=== PATIENT | female | born 1965 | race Caucasian/White ===

== ENCOUNTER → 2017-03-25 | Outpatient (CLI) | payer BC | LOC: MC.RAD 15:12 | DX: Z12.31 Encounter for screening mammogram for malignant neoplasm of breast (principal) ==

== ENCOUNTER 2017-10-02 14:58 | Emergency (ER) | payer BC ==
[~2017-10-02] VITALS: Ht 170.2 cm; Wt 77.3 kg
[2017-10-02 15:00] VITALS: BP 113/82; TEMP 97.7
[2017-10-02] MEDS ORDERED: EFFEXOR XR37.5 MG/CA PO (15:17)
[2017-10-02] MEDS ORDERED: [UNRECOGNIZED DRUG - CODE] PO (15:18)
[2017-10-02] MEDS ORDERED: MELATONIN5 M1 SL (15:21)
[2017-10-02] MEDS ORDERED: MOTRIN 800800 MG/TAB PO (15:22)
[2017-10-02] MEDS ORDERED: NORCO 325 MG-51 TAB PO (16:34)
[2017-10-02] MEDS ORDERED: ZOFRAN ODT4 MG PO (16:34)
[2017-10-02 16:50] VITALS: PULSE 75
== END 2017-10-02 16:50 | disposition home or self-care (01) ==
LOC: COL.ER 14:58
DX: S42.201A Unspecified fracture of upper end of right humerus, initial encounter for closed fracture (principal); G43.909 Migraine, unspecified, not intractable, without status migrainosus; W01.0XXA Fall on same level from slipping, tripping and stumbling without subsequent striking against object, initial encounter; Y92.008 Other place in unspecified non-institutional (private) residence as the place of occurrence of the external cause
CPT/HCPCS: J3010

== ENCOUNTER 2018-10-03 12:52 | Outpatient (RCR) | payer OTHER ==
[~2018-10-03 12:52] MED LIST: EFFEXOR XR37.5 MG/CA PO; MELATONIN5 M1 SL; MOTRIN 800800 MG/TAB PO; NORCO 325 MG-51 TAB PO; ZOFRAN ODT4 MG PO; [UNRECOGNIZED DRUG - CODE] PO
== END 2019-01-01 | disposition home or self-care (01) ==
LOC: WSOH
DX: S90.32XA Contusion of left foot, initial encounter (principal); W23.0XXA Caught, crushed, jammed, or pinched between moving objects, initial encounter; Y92.240 Courthouse as the place of occurrence of the external cause; Y99.0 Civilian activity done for income or pay; Z79.899 Other long term (current) drug therapy

== ENCOUNTER → 2019-07-10 | Outpatient (CLI) | payer BC | LOC: MC.RAD 06-04 14:00 | DX: Z12.31 Encounter for screening mammogram for malignant neoplasm of breast (principal) ==

== ENCOUNTER → 2020-01-08 | Outpatient (CLI) | payer BC ==
--- NOTE | 2020-01-04 14:55 | NUR ---
LMOM REGARDING TIME DATE ISTRUCTIONS AND CALL BACK NUMBER.
[~2020-01-08] VITALS: Ht 170.2 cm; Wt 95.1 kg
[~2020-01-08] MED LIST changes: +ASPIRIN E.C. 8181 MG PO; +CLARITIN 1010 MG/TAB PO; +MEDROL4 MG PO; +MULTIPLE VITAMI1 CAP PO; +PRILOSEC 20MG20 MG PO; +TYLENOL 500MG500 MG PO
[2020-01-08 09:45] VITALS: BP 137/101; PULSE 88
[2020-01-08 10:50] VITALS: BP 140/89; PULSE 74
[2020-01-08 10:52] VITALS: BP 147/86; PULSE 104
[2020-01-08 10:53] VITALS: BP 168/100; PULSE 122
[2020-01-08 10:54] VITALS: BP 159/90; PULSE 94
[2020-01-08 10:55] VITALS: BP 159/89; PULSE 93
== END ==
LOC: COL.CARD 09:15
DX: R07.9 Chest pain, unspecified (principal); E78.00 Pure hypercholesterolemia, unspecified
CPT/HCPCS: A9500; J2785

== ENCOUNTER → 2020-09-01 | Outpatient (CLI) | payer BC ==
[~2020-09-01] MED LIST changes: +IMITREX50 MG PO; +LIPITOR20 MG PO
[2020-09-01 17:44] LABS: BASO % 0.4 % (0.0-2.0); EOS # 0.2 (0.0-0.7); EOS % 1.6 % (0-4.0); GRAN # 5.9 (1.4-6.5); GRAN % 60.5 % (42.2-75.2); HEMATOCRIT 41.5 % (37.0-47.0); HEMOGLOBIN 13.5 g/dl (12.5-16.0); LYMPH % 30.5 % (20.0-51.0); MEAN CELL VOLUME 87 fl (80.0-100.0); MEAN CORPUSCULAR HEMOGLOBIN 28 pg (27.0-31.0); MEAN CORPUSCULAR HGB CONC 33 g/dl (33.0-37.0); MONO # 0.7 (0.1-0.6); MONO % 6.7 % (1.7-9.3); PLATELET COUNT 253 K/mm3 (130-400); RED BLOOD COUNT 4.78 M/mm3 (4.10-5.30); REDCELL DISTRIBUTION WIDTH-CV 13.2 % (11.5-14.5)
[2020-09-01 17:48] LABS: ALBUMIN 4.3 gm/dL (3.5-5.0); BILIRUBIN,TOTAL 0.4 mg/dL (0.0-1.0); CALCIUM 8.9 mg/dL (8.4-10.2); CREATININE, serum 0.71 (0.52-1.25); POTASSIUM 3.3 mmol/L (3.4-5.0); TOTAL PROTEIN 7.7 gm/dL (6.4-8.2)
== END ==
LOC: COL.LAB 15:24
PROVIDERS: Family Medicine
DX: R10.0 Acute abdomen (principal)

== ENCOUNTER → 2020-09-01 | Outpatient (CLI) | payer BC ==
[~2020-09-01] MED LIST changes: -IMITREX50 MG PO; -LIPITOR20 MG PO
== END ==
LOC: COL.RAD 14:02
DX: R91.1 Solitary pulmonary nodule (principal); R10.0 Acute abdomen; Z90.49 Acquired absence of other specified parts of digestive tract

== ENCOUNTER → 2020-09-09 | Outpatient (CLI) | payer BC | LOC: MC.RAD 08:13 | DX: Z12.31 Encounter for screening mammogram for malignant neoplasm of breast (principal) ==

== ENCOUNTER 2020-09-18 09:51 | Outpatient (CLI) | payer BC ==
[2020-09-18] VITALS (14 sets, daily range): BP systolic 120–154; BP diastolic 87–117; PULSE 72–110
[2020-09-18] MEDS ORDERED: LIPITOR20 MG PO (10:02)
[2020-09-18] MEDS ORDERED: IMITREX50 MG PO (10:03)
--- NOTE | 2020-09-18 12:28 | NUR ---
Pt resting in bed. Alert and oriented, denies pain and needs at this time. Talking without SOB. VSS
--- NOTE | 2020-09-18 14:43 | NUR ---
INT discontinued intact. Discharge instructions given
== END 2020-09-18 15:00 | disposition home or self-care (01) ==
LOC: COL.RAD 09:51
DX: R91.1 Solitary pulmonary nodule (principal)

== ENCOUNTER → 2021-08-26 | Outpatient (CLI) | payer BC ==
[~2021-08-26] MED LIST changes: +IMITREX50 MG PO; +LIPITOR20 MG PO
== END ==
LOC: COL.RAD 12:37
DX: R91.1 Solitary pulmonary nodule (principal); R59.0 Localized enlarged lymph nodes
CPT/HCPCS: Q9967

== ENCOUNTER → 2021-10-29 | Outpatient (CLI) | payer BC | LOC: MC.RAD 07:57 | DX: Z12.31 Encounter for screening mammogram for malignant neoplasm of breast (principal) ==

== ENCOUNTER → 2022-12-07 | Outpatient (CLI) | payer BC | LOC: COL.RAD 08:58 | DX: M71.22 Synovial cyst of popliteal space [Baker], left knee (principal); M17.12 Unilateral primary osteoarthritis, left knee; M23.8X2 Other internal derangements of left knee ==

== ENCOUNTER → 2023-01-04 | Outpatient (CLI) | payer BC | LOC: MC.RAD 07:24 | DX: Z12.31 Encounter for screening mammogram for malignant neoplasm of breast (principal) ==

== ENCOUNTER → 2024-01-30 | Outpatient (CLI) | payer BC ==
[~2024-01-30] MED LIST changes: +WEGOVY1.7 MG/0.7
== END ==
LOC: MC.RAD 08:47
DX: Z12.31 Encounter for screening mammogram for malignant neoplasm of breast (principal)

== ENCOUNTER 2024-05-01 05:27 | Day surgery (SDC) | payer BC ==
[~2024-05-01] VITALS: Ht 170.2 cm; Wt 96.7 kg
[~2024-05-01 05:27] MED LIST changes: +LR 1,000 ML IV SCH; +Scopolamine 1 MG Delivered 3-Day PATCH TD SCH
[2024-05-01] MEDS ORDERED: MOTRIN 800800 MG/TAB PO (06:13)
[2024-05-01] MEDS ORDERED: HYDROcodone/Acetaminophen 7.5-325 MG TAB PO PRN (06:15)
[2024-05-01] MEDS ORDERED: Ondansetron 4 MG/2 ML VIAL IV PRN (06:15)
[2024-05-01] MEDS ORDERED: Morphine 4 MG/ML VIAL IV PRN (06:15)
[2024-05-01] MEDS ORDERED: Midazolam 2 MG/2 ML VIAL ONE (06:24)
[2024-05-01] MEDS ORDERED: fentaNYL 50 MCG/ML 2 ML VIAL ONE (06:24)
[2024-05-01] MEDS ORDERED: NS 10 ML IV ONE (06:30)
[2024-05-01] MEDS ORDERED: Lidocaine PF 2% (20 MG/ML) 5 ML VIAL ONE (06:30)
[2024-05-01 06:42] VITALS: BP 136/96; PULSE 79; TEMP 98.1
[2024-05-01 07:15] VITALS: BP 136/93; PULSE 82; TEMP 98
[2024-05-01 07:30] VITALS: BP 124/91; PULSE 84
[2024-05-01 07:45] VITALS: BP 146/90; PULSE 80
[2024-05-01 08:00] VITALS: BP 138/90; PULSE 80
--- NOTE | 2024-05-01 08:20 | NUR ---
0715 RETURNS TP ROOM 8 FROM OR WITH HOB [id number] DEGREES. AWAKE, ALERT. RESP UNLABORED. VITAL SIGNS OBTAINED. ARIAN WRAPPED DRESSING RIGHT FOOT CLEAN DRY AND INTACT. RIGHT LEG/FOOT ELEVATED. NEURO/CIRC CHECKS INTACT. DENIES PAIN. 0730 DOZING 0745 AWAKE, ALERT. CONVERSES APPROPRIATELY. HOB ELEVATED 75 DEGREES. TOLERATES PO SODA WITHOUT NAUSEA. 0805 DISCHARGE INSTRUCTIONS REVIEWED. PATIENT VERBALIZES UNDERSTANDING. COPY PROVIDED IN DISCHARGE FOLDER 0815 SITS ON EDGE OF BED. DRESSES SELF. POST OP SHOE TO RIGHT FOOT
== END 2024-05-01 08:20 | disposition home or self-care (01) ==
LOC: SDCO 05:27
DX: M67.471 Ganglion, right ankle and foot (principal)
CPT/HCPCS: J0665; J0690; J2250; J2704; J3010; J7120